=== PATIENT | male | born 1970 | race Caucasian/White ===

== ENCOUNTER 2016-11-20 12:51 | Emergency (ER) | payer SELFPAY ==
[2016-11-20 13:52] VITALS: BP 168/78
--- NOTE | 2016-11-20 15:38 | ERNOTE ---
[facility] Date of Service: 11/20/16 Source: patient Exam Limitations: no limitations - Immun/Allergies/Home Medications Immunizations: IMMUNIZATION HX Immunizations Up to Date No History of Influenza Vaccine No Hx Pneumococcal Vaccination No Allergies/Adverse Reactions: Allergies Allergy/AdvReac Type Severity Reaction Status Date / Time No Known Allergies Allergy Unverified 10/27/15 09:30 Home Medications: HOME MEDICATIONS Lamotrigine [Lamictal] 150 mg PO DAILY 03/26/16 [Last Taken Unknown] Lorazepam [Ativan] 2 mg PO DAILY 03/26/16 [Last Taken Unknown] Naltrexone HCl [ReVia] 50 mg PO DAILY 03/26/16 [Last Taken Unknown] Amox Tr/Potassium Clavulanate [Augmentin 875-125 Tablet] 875 mg PO Q12H #20 tab 11/20/16 [Last Taken Unknown] - History of Present Illness Narrative: Pt. comes in with c/o L sided throat pain and swelling for six days. Pt. states that swallowing aggravates the pain and is difficult but pt. denies any sob, cough, or fever. Pt. denies any prehospital treatment or alleviating factors but states that he has had sinus congestion and L ear pain. Review of Systems - Review of Systems Constitutional: Present: weakness, fatigue, malaise. Absent: recent illness, fever EYE: Present: no symptoms reported ENT: Present: ear pain, nose congestion, nasal drainage, sore throat, throat swelling Respiratory: Present: no symptoms reported. Absent: shortness of breath, cough , wheezing Cardiology: Present: no symptoms reported. Absent: chest pain, palpitations, edema Gastrointestinal/Abdominal: Present: no symptoms reported. Absent: nausea, vomiting, diarrhea, abdominal pain Genitourinary: Present: no symptoms reported Musculoskeletal: Present: no symptoms reported. Absent: back pain, joint pain Skin: Present: no symptoms reported Neurological: Present: no symptoms reported. Absent: headache, dizziness/light- headedness, numbness, tingling All Other Systems: All systems neg except as marked - Patient's Past Medical History Patient History - Medical: No pertinent hx Patient History - Cancer: No Hx of Cancer Patient History - Surgical Procedures: T & A - Social History Living Situations: home Do you dip or chew tobacco: Yes Physical Exam - Physical Exam General Appearance: Present: wd/wn, alert, no apparent distress Eye Exam: Normal inspection: bilateral, PERRL: bilateral, EOMI: bilateral Ears, Nose, Throat: Present: hearing grossly normal, abnormal TM (L) - erythema , nasal congestion, sinus pain/drainage - L maxillary, pharyngeal erythema, pharyngeal swelling, tonsillar exudate - white Neck: Present: full range of motion, lymphadenopathy (L) - pre and post aruicular submandibular ant cervical, tender lateral - with palpation of lymphnodes Respiratory: Present: no respiratory distress, normal breath sounds, no accessory muscle use, chest nontender, lungs clear Cardiovascular/Chest: Present: regular rate, rhythm, no murmur, normal peripheral pulses Gastrointestinal/Abdominal: Present: normal bowel sounds, nontender Back Exam: Present: normal inspection, normal range of motion, no CVA tenderness , no vertebral tenderness Extremity Exam: Present: normal inspection Neurological Exam: Present: alert, oriented, normal mood/affect, no motor/ sensory deficits Skin Exam: Present: warm/dry, pallor. Absent: skin rash ED Progress - Results and Orders Patient's Lab Results:: I have reviewed the patient's lab results. - Vital Signs Patient's Vital Signs:: I have reviewed the patient's vital signs. Vital Signs: Vital Signs 11/20/16 13:44 Temperature 36.5 C Pulse Rate 90 Respiratory 16 Rate Blood Pressure 168/78 O2 Sat by Pulse 97 Oximetry - Progress/Reassessment Chief Complaint: Sore Throat Departure Clinical Impression: Pharyngitis Qualifiers: Pharyngitis/tonsillitis etiology: unspecified etiology Qualified Code(s): J02.9 - Acute pharyngitis, unspecified - Departure Disposition: Home self-care Condition: Good Instructions: Pharyngitis, [id number] Additional Instructions: Please follow up with your primary provider in 2-3 days. Referrals: Doni Graham DO [Primary Care Provider] - Prescriptions: Amox Tr/Potassium Clavulanate [Augmentin 875-125 Tablet] 875 mg PO Q12H #20 tab
== END 2016-11-20 16:25 | disposition home or self-care (01) ==
LOC: ER 12:51
DX: J02.9 Acute pharyngitis, unspecified (principal); F17.220 Nicotine dependence, chewing tobacco, uncomplicated

== ENCOUNTER 2017-09-11 17:02 | Emergency (ER) | payer OTHER ==
[2017-09-11] MEDS ORDERED: NITROGLYCERIN 0.4 MG/TAB BTL SL ONE ×3 (17:24→17:33)
[2017-09-11] MEDS ORDERED: ASPIRIN 81 MG TAB.CHEW PO ONE (17:24)
[2017-09-11] MEDS ORDERED: ASPIRIN 81 MG TAB.CHEW ONE (17:25)
[2017-09-11 17:28] LABS: Hematocrit 42.8 % (42.0-52.0); Mean Cell Volume 88.8 fl (78-100); Mean Corpuscular Hemoglobin 33.2 pg (27-31); Mean Corpuscular Hgb Conc 37.4 g/dl (32-36); Mean Platelet Volume 9.2 fl (6.0-9.5); Platelet Count 203 K/mm3 (150-450); Red Blood Count 4.82 M/mm3 (4.7-6.0); Red Cell Distribution Width 11.6 % (11.5-14.0); White Blood Count 11.8 K/mm3 (4.0-10.5)
--- NOTE | 2017-09-11 17:31 | ERNOTE ---
Chest Pain/Cardiac HPI Chief Complaint: Chest Pain Time Seen by Provider: 09/11/17 17:17 Source: patient Exam Limitations: no limitations Immunizations: IMMUNIZATION HX Immunizations Up to Date Yes History of Influenza Vaccine No Hx Pneumococcal Vaccination No Allergies/Adverse Reactions: Allergies No Known Allergies Allergy (Verified 09/11/17 17:11) Home Medications: HOME MEDICATIONS Lorazepam [Ativan] 2 mg PO DAILY 03/26/16 [Last Taken Unknown] Narrative: Patient has been having chest pain on and off for for two days. He is rather vague in describing his symptoms, pain comes and goes. He thinks it might just be anxiety and is only coming because his sister told him so. He drinks ETOH on a daily basis ,does not want to say how much ('too much'). He treats his PTSD with that, currently rates his pain as 05/21 Date (Duration): 09/09/17 Timing: intermittent Severity/Quality: moderate, pressure Location: central Chest Pain Radiation: no radiation Activities at Onset: none Modifying Factors - Improves: Present: nothing Modifying Factors - Worsens: Present: nothing Nitro Today/Relief: no nitro taken today Aspirin Treatment Today: no aspirin today Associated Symptoms: Present: shortness of breath. Absent: headache, dizziness , diaphoresis, fever/chills, nausea, vomiting Prior Chest Pain/Cardiac Workup: Denies: prior chest pain Prior Treatment: Denies: recently seen, currently on antibiotics Review of Systems - Review of Systems Constitutional: Absent: recent illness, fever EYE: Absent: vision changes ENT: Absent: nose congestion, sore throat Respiratory: Present: See HPI Cardiology: Present: See HPI Gastrointestinal/Abdominal: Absent: nausea, abdominal pain Genitourinary: Present: no symptoms reported Musculoskeletal: Present: no symptoms reported Neurological: Absent: headache - Patient's Past Medical History Patient History - Medical: Alcohol Abuse, Anxiety Patient History - Cardiac/Respiratory: No pertinent hx Patient History - Cancer: No Hx of Cancer Patient History - Surgical Procedures: T & A Patient History - Other: None - Social History Living Situations: home Abuse History: No History of abuse Psych History: Hx of Anxiety Smoking Status: Never smoker Have you smoked in the past 12 months: No Do you dip or chew tobacco: Yes Alcohol Use: occasionally Drug Use: none - Immunizations Immunizations Up to Date: Yes Hx Pneumococcal Vaccination: No History of Influenza Vaccine: No Physical Exam - Physical Exam General Appearance: Present: wd/wn, alert, no apparent distress Head Exam: Present: normal inspection Ears, Nose, Throat: Present: normal pharynx Respiratory: Present: no respiratory distress, normal breath sounds, no accessory muscle use, lungs clear Cardiovascular/Chest: Present: no murmur, tachycardia Gastrointestinal/Abdominal: Present: normal bowel sounds, nontender, nondistended, soft Neurological Exam: Present: alert, oriented, normal mood/affect, no motor/ sensory deficits Skin Exam: Present: normal color, warm/dry ED Progress - Results and Orders Patient's Lab Results:: I have reviewed the patient's lab results. - Vital Signs Patient's Vital Signs:: I have reviewed the patient's vital signs. Vital Signs: Vital Signs 09/11/17 17:02 Temperature 37.5 C Pulse Rate 132 H Respiratory 19 Rate Blood Pressure 162/95 O2 Sat by Pulse 97 Oximetry - EKG EKG: NSR - sinustachy cardia, nonspecific ST T wave changes EKG read: Interp. by me - X-Ray X-Ray #1 X-Ray: chest - no acute Interpretation: Reviewed by me - Progress/Reassessment Chief Complaint: Chest Pain Progress Note-Subjective: 09/11/17 19:03 discussed results with patient, explained limits of test to rule out CAD, offered admission, patient declined patient has significant ETOH level, he seems to be tolerating it very well and capable of making decisions discussed need to address addiction and anxiety, will give list of counselling services available pain resolved Departure Clinical Impression: ETOH abuse, PTSD (post-traumatic stress disorder) Chest pain Qualifiers: Chest pain type: precordial pain Qualified Code(s): R07.2 - Precordial pain - Departure Disposition: Home self-care Condition: Stable Instructions: Form - Excuse from Work, School, or Physical Activity, Chest Pain Observation Additional Instructions: call your doctor for follow up consider counselling Referrals: Doni Graham DO [Staff Physician] -
[2017-09-11 17:37] LABS: Total Cells Counted 100
[2017-09-11 17:38] LABS: Prothrombin Time (Patient) 11.9 Seconds (9.0-11.0)
[2017-09-11 17:39] LABS: INR 1.19 INR (0.90-1.10); Partial Thrombolplastin Time 28.2 Seconds (24-32)
[2017-09-11 17:48] LABS: Albumin * 4.3 gm/dl (3.4-5.0); Alkaline Phosphatase * 160 U/L (50-170); Anion Gap 30.2 mmol/L (6.8-13.8); BUN/Creatinine Ratio 19.7 (9.0-21.6); Bilirubin, Total 1.1 mg/dL (0.0-1.1); Blood Urea Nitrogen 15 mg/dL (6-23); Ca. Corrected For Albumin 7.8 mg/dL (8.4-10.2); Calcium * 8.4 mg/dL (7.9-10.9); Carbon Dioxide 16.2 mmol/L (24-32.6); Chloride 96 mmol/L (97-106); Glucose * 137 mg/dL (70-110); Potassium 3.4 mmol/L (3.4-4.6); Sodium 139 mmol/L (132-142); Total Protein 7.7 gm/dL (6.2-8.2)
[2017-09-11 17:49] LABS: Troponin I Less than 0.017 ng/ml (0.00-0.10)
[2017-09-11 18:06] LABS: Band 1 % (0-2.0); Basophil 2 % (0-1); Immature Granulocyte 1 (0-1); Lymphocyte 43 % (20-51); Monocyte 4 % (0-9); Neutrophil 49 % (42-75); Neutrophil # 5.8 K/mm3 (1.3-6.0)
[2017-09-11 18:08] LABS: Platelet Estimate Normal (NORMAL); RBC Morphology Normal (NORMAL)
[2017-09-11 18:37] LABS: ALT 84 U/L (19-67)
[2017-09-11 18:38] LABS: AST 131 U/L (0-48)
[2017-09-11 20:38] VITALS: BP 141/89
== END 2017-09-11 19:13 | disposition home or self-care (01) ==
LOC: ER 17:02
DX: F43.10 Post-traumatic stress disorder, unspecified (principal); R07.2 Precordial pain; F10.10 Alcohol abuse, uncomplicated; F17.220 Nicotine dependence, chewing tobacco, uncomplicated